=== PATIENT | male | born 1985 | race Caucasian/White ===

== ENCOUNTER 2017-03-26 10:11 | Emergency (ER) | payer BC ==
[2017-03-26 11:01] LABS: #Monocytes 0.8 thou/uL (0.11-0.59); %Basophils 0.2 % (0.0-1.0); %Eosinophils 0.2 % (0.0-10.0); %Lymphocytes 9.6 % (21.0-51.0); %Monocytes 8.1 % (0.0-10.0); %Neutrophils 81.9 % (42.0-75.0); Hemoglobin 15.1 g/dL (14.0-18.0); Mean Corpuscular HGB CONC 34.2 g/dL (32.0-36.0); Mean Corpuscular Volume 87.5 fl (80.0-94.0); Mean Platelet Volume 7.5 fL (7.4-10.4); Platelet Count 215 thou/uL (130-400); RBC Distribution Width 11.7 % (11.5-14.5); Red Blood Cell (RBC) Count 5.05 mill/uL (4.70-6.10); White Blood Cell (WBC) Count 9.8 thou/uL (4.8-10.8)
[2017-03-26 11:27] LABS: ALT (SGPT) 49 U/L (8-55); AST (SGOT) 55 U/L (5-34); Acetaminophen Less than 6.0 mcg/mL (10.0-30.0); Alcohol Less than 10 mg/dL (Less than 10); Alkaline Phosphatase 98 U/L (40-150); Anion Gap 16 mmol/L (10-20); BUN (Urea Nitrogen) 18 mg/dL (8.9-20.6); Bilirubin, Total 0.5 mg/dL (0.2-1.2); CK (CPK) 2802 U/L (30-200); Calc. Creatinine Clearance 0 mL/min (70-130); Calcium 9.5 mg/dL (7.8-10.44); Carbon Dioxide 24 mmol/L (22-29); Chloride 102 mmol/L (98-107); Estimated GFR-MDRD 58; Globulin 3.4 g/dL (2.4-3.5); Glucose 87 mg/dL (70-105); Potassium 4.1 mmol/L (3.5-5.1); Protein, Total 7.4 g/dL (6.0-8.3); Salicylate Less than 8.0 mg/dL (15.0-30.0); Sodium 138 mmol/L (136-145)
[2017-03-26 11:30] LABS: Troponin I Less than 0.010 ng/mL (< 0.028)
== END 2017-03-26 11:40 | disposition home or self-care (01) ==
LOC: ERS 10:11
DX: L03.115 Cellulitis of right lower limb (principal); R22.42 Localized swelling, mass and lump, left lower limb; Z79.899 Other long term (current) drug therapy
CPT/HCPCS: 36415; 80053; 80307; 82553; 83690; 84484; 85025; 93005; 94760

== ENCOUNTER 2017-05-30 11:06 | Emergency (ER) | payer BC, OTHER, SELFPAY ==
[2017-05-30 11:43] LABS: #Monocytes 0.4 thou/uL (0.11-0.59); #Neutrophils 5.7 thou/uL (1.40-6.50); %Basophils 0.2 % (0.0-1.0); %Eosinophils 0.2 % (0.0-10.0); %Lymphocytes 14.3 % (21.0-51.0); %Monocytes 5.1 % (0.0-10.0); %Neutrophils 80.2 % (42.0-75.0); Hemoglobin 14.2 g/dL (14.0-18.0); Mean Corpuscular Hemoglobin 28.1 pg (27.0-31.0); Mean Corpuscular Volume 85.2 fl (80.0-94.0); Mean Platelet Volume 7.1 fL (7.4-10.4); Platelet Count 257 thou/uL (130-400); RBC Distribution Width 12.6 % (11.5-14.5); Red Blood Cell (RBC) Count 5.06 mill/uL (4.70-6.10); White Blood Cell (WBC) Count 7.2 thou/uL (4.8-10.8)
[2017-05-30 12:14] LABS: ALT (SGPT) 24 U/L (8-55); AST (SGOT) 35 U/L (5-34); Albumin 4.1 g/dL (3.5-5.0); Alkaline Phosphatase 76 U/L (40-150); Anion Gap 17 mmol/L (10-20); BUN (Urea Nitrogen) 6 mg/dL (8.9-20.6); Bilirubin, Total 0.5 mg/dL (0.2-1.2); Calc. Creatinine Clearance 0 mL/min (70-130); Calcium 9.5 mg/dL (7.8-10.44); Carbon Dioxide 19 mmol/L (22-29); Chloride 105 mmol/L (98-107); Estimated GFR-MDRD Greater than 90; Globulin 3.4 g/dL (2.4-3.5); Glucose 120 mg/dL (70-105); Potassium 3.7 mmol/L (3.5-5.1); Protein, Total 7.5 g/dL (6.0-8.3); Sodium 137 mmol/L (136-145)
[2017-05-30 12:17] LABS: Acetaminophen Less than 6.0 mcg/mL (10.0-30.0); Alcohol Less than 10 mg/dL (Less than 10); Salicylate Less than 8.0 mg/dL (15.0-30.0)
[2017-05-30] MEDS ORDERED: Ziprasidone 20 MG VIAL ONE (12:26)
[2017-05-30 13:42] LABS: Amphetamine Detected (NotDetected); Cocaine Metabolite Screen Detected (NotDetected); Medtox Reader # READER 4; Methamphetamine Detected (NotDetected); Opiate Screen Detected (NotDetected)
[2017-05-30 13:43] LABS: Barbiturates Screen Not Detected (NotDetected); Benzodiazepine Screen Not Detected (NotDetected); Medtox Control Line Valid? VALID (VALID); Methadone Not Detected (NotDetected); Oxycodone Screen Not Detected (NotDetected); Phencyclidine (PCP) Not Detected (NotDetected); THC/Cannabinoid Screen Not Detected (NotDetected); Tricyclic Screen Not Detected (NotDetected)
[2017-05-30 13:45] LABS: Bilirubin Negative (Negative); Blood, Urine Negative (Negative); Clarity CLEAR (Clear); Glucose, Urine (Dipstick) Negative (Negative); Leukocyte Negative (Negative); Nitrite Negative (Negative); Protein, Urine (Dipstick) Negative (Neg-Trace); Specific Gravity, Urine 1.003 (1.002-1.036); pH, Urine 7.5 (5.0-9.0)
[2017-05-31] MEDS ORDERED: Ziprasidone 20 MG VIAL ONE ×2 (03:12→07:55)
[2017-05-31] MEDS ORDERED: Water For Injection,Sterile 20 ML ONE ×2 (03:13→07:56)
== END 2017-05-31 09:21 ==
LOC: ERS 11:06
DX: R45.851 Suicidal ideations (principal); R44.0 Auditory hallucinations; R44.1 Visual hallucinations; S00.12XA Contusion of left eyelid and periocular area, initial encounter; Z79.899 Other long term (current) drug therapy; W22.8XXA Striking against or struck by other objects, initial encounter
CPT/HCPCS: 36415; 80053; 80306; 80307; 81003; 84443; 85025; 93005; 96372; J3486

== ENCOUNTER 2017-06-19 07:13 | Emergency (ER) | payer OTHER ==
[2017-06-19 08:03] LABS: #Lymphocytes 1.1 thou/uL (1.20-3.40); #Monocytes 0.5 thou/uL (0.11-0.59); #Neutrophils 7.7 thou/uL (1.40-6.50); %Basophils 0.4 % (0.0-1.0); %Eosinophils 0.3 % (0.0-10.0); %Lymphocytes 11.4 % (21.0-51.0); %Monocytes 5.3 % (0.0-10.0); %Neutrophils 82.6 % (42.0-75.0); Hemoglobin 14.9 g/dL (14.0-18.0); Mean Corpuscular Hemoglobin 29.2 pg (27.0-31.0); Mean Platelet Volume 6.9 fL (7.4-10.4); Platelet Count 251 thou/uL (130-400); RBC Distribution Width 13.3 % (11.5-14.5); White Blood Cell (WBC) Count 9.3 thou/uL (4.8-10.8)
[2017-06-19 08:24] LABS: Acetaminophen Less than 6.0 mcg/mL (10.0-30.0); Alcohol Less than 10 mg/dL (Less than 10); Salicylate Less than 8.0 mg/dL (15.0-30.0)
[2017-06-19 08:25] LABS: ALT (SGPT) 64 U/L (8-55); AST (SGOT) 49 U/L (5-34); Albumin 4.6 g/dL (3.5-5.0); Alkaline Phosphatase 74 U/L (40-150); Anion Gap 15 mmol/L (10-20); BUN (Urea Nitrogen) 16 mg/dL (8.9-20.6); Bilirubin, Total 0.6 mg/dL (0.2-1.2); CK (CPK) 249 U/L (30-200); Calc. Creatinine Clearance 0 mL/min (70-130); Calcium 9.5 mg/dL (7.8-10.44); Carbon Dioxide 27 mmol/L (22-29); Chloride 99 mmol/L (98-107); Estimated GFR-MDRD 79; Globulin 3.3 g/dL (2.4-3.5); Glucose 87 mg/dL (70-105); Potassium 3.9 mmol/L (3.5-5.1); Protein, Total 7.9 g/dL (6.0-8.3); Sodium 137 mmol/L (136-145)
[2017-06-19 08:32] LABS: Bilirubin Negative (Negative); Blood, Urine Negative (Negative); Clarity CLEAR (Clear); Glucose, Urine (Dipstick) Negative (Negative); Leukocyte Negative (Negative); Nitrite Negative (Negative); Protein, Urine (Dipstick) Negative (Neg-Trace); Specific Gravity, Urine 1.009 (1.002-1.036); Urobilinogen 0.2 mg/dL (0.2-1.0)
[2017-06-19 08:43] LABS: Amphetamine Detected (NotDetected); Barbiturates Screen Not Detected (NotDetected); Benzodiazepine Screen Not Detected (NotDetected); Cocaine Metabolite Screen Detected (NotDetected); Medtox Control Line Valid? VALID (VALID); Medtox Reader # READER 1; Methadone Not Detected (NotDetected); Methamphetamine Detected (NotDetected); Opiate Screen Not Detected (NotDetected); Oxycodone Screen Not Detected (NotDetected); Phencyclidine (PCP) Not Detected (NotDetected); THC/Cannabinoid Screen Not Detected (NotDetected); Tricyclic Screen Not Detected (NotDetected)
== END 2017-06-19 09:40 | disposition left against medical advice (07) ==
LOC: ERS 07:13
DX: R44.0 Auditory hallucinations (principal); R44.1 Visual hallucinations
CPT/HCPCS: 36415; 80053; 80306; 80307; 81003; 82550; 84443; 85025; 96360

== ENCOUNTER 2019-04-09 16:03 | Inpatient (IN) | payer BC, OTHER ==
[~2019-04-09 16:03] MED LIST: Iopamidol-370 76% 500 ML 1 ML ONE
--- NOTE | 2019-04-09 16:26 | RAD ---
ONE VIEW CHEST: 04/09/19 COMPARISON: 04/16/15 HISTORY: Overdose. Status post intubation. FINDINGS: There appears to be an endotracheal tube that terminates just beyond the level of the clavicles. Naso gastric tube appears to coil upon itself and terminate in the mid thoracic esophagus. Repositioning a nd repeat radiograph is recommended. Patch interstitial and alveolar opacities are noted. IMPRESSION: Endotracheal and nasogastric tubes as above. Findings conveyed to Dr. Rosen, 04/09/19 at 4:22 p.m. Code CR POS: CET
[2019-04-09] MEDS ORDERED: Albuterol Sulfate 2.5 mg/3 ml Neb ONE (16:30)
[2019-04-09] MEDS ORDERED: Midazolam HCl 5 mg/ml Vial ONE (16:32)
[2019-04-09 16:35] LABS: Hemoglobin 13.9 g/dL (14.0-18.0); Mean Corpuscular HGB CONC 33.5 g/dL (32.0-36.0); Mean Corpuscular Hemoglobin 30.5 pg (27.0-31.0); Mean Corpuscular Volume 90.8 fL (78.0-98.0); Mean Platelet Volume 7.6 fL (7.4-10.4); Platelet Count 216 thou/uL (130-400); RBC Distribution Width 12.6 % (11.5-14.5); Red Blood Cell (RBC) Count 4.56 mill/uL (4.70-6.10); White Blood Cell (WBC) Count 14.8 thou/uL (4.8-10.8)
[2019-04-09 16:42] LABS: Acetaminophen Less than 6.0 mcg/mL (10.0-30.0); Alcohol Less than 10 mg/dL (Less than 10); CK (CPK) 1141 U/L (30-200); Salicylate Less than 8.0 mg/dL (15.0-30.0)
[2019-04-09 16:50] LABS: Band 12 % (5-11); Eosinophils 1 % (0-10); Lymphocytes 8 % (21-51); MDiff Complete? YES; Monocytes 4 % (0-10); Neutrophil 74 % (42-75); Platelet Morphology Comment Appears Adequate; RBC Morphology Normal
[2019-04-09 16:51] LABS: ALT (SGPT) 38 U/L (8-55); AST (SGOT) 61 U/L (5-34); Albumin 4.1 g/dL (3.5-5.0); Alkaline Phosphatase 57 U/L (40-110); Anion Gap 21 mmol/L (10-20); BUN (Urea Nitrogen) 15 mg/dL (8.9-20.6); Bilirubin, Total 0.3 mg/dL (0.2-1.2); Calc. Creatinine Clearance 0 mL/min (70-130); Carbon Dioxide 17 mmol/L (22-29); Chloride 107 mmol/L (98-107); Estimated GFR-MDRD 36; Globulin 2.4 g/dL (2.4-3.5); Glucose 128 mg/dL (70-105); Potassium 3.8 mmol/L (3.5-5.1); Protein, Total 6.5 g/dL (6.0-8.3); Sodium 141 mmol/L (136-145)
[2019-04-09] MEDS ORDERED: Azithromycin 500 MG VIAL ONE (16:52)
[2019-04-09] MEDS ORDERED: Cefepime 1 GM VIAL ONE (16:53)
[2019-04-09] MEDS ORDERED: Ventilator Sedation Protocol 1 EACH FS ONE (16:56)
[2019-04-09] MEDS ORDERED: CCU Electrolyte Replacement 1 EACH FS ONE (16:56)
[2019-04-09 16:57] LABS: Actual Bicarbonate (HCO3a) 21.8 mEq/L (22-28); Analyzer IN Cardio ER; Base Excess (BEa) -11.8 mEq/L (-2.0 to +3.0); CO2 Tension 95.3 mmHg (35.0-45.0); Calcium, Ionized 1.17 mmol/L (1.12-1.30); Carboxyhemoglobin (COHb) 0.4 gm% (0.0-3.0); O2 Tension (PaO2) 63.9 mmHg (80.0-100.0); Potassium - ABG Lab 3.48 mmol/L (3.70-5.30); pH, Arterial 6.98 (7.35-7.45)
[2019-04-09 16:58] LABS: ALV-art Gradient 529.975 (0-20); Puncture Site RRA
[2019-04-09] MEDS ORDERED: Vecuronium 10 MG VIAL IVP PRN (16:58)
[2019-04-09 17:09] LABS: Bilirubin Negative (Negative); Blood, Urine 2+ (Negative); Clarity Turbid (Clear); Glucose, Urine (Dipstick) Normal (Negative); Leukocyte Negative Leu/uL (Negative); Nitrite Negative (Negative); Protein, Urine (Dipstick) 100 mg/dL (Neg-Trace); RBC/HPF 0-3 HPF (0-3); WBC/HPF 0-3 HPF (0-3)
[2019-04-09 17:11] LABS: Bacteria/HPF 1+ HPF (None Seen)
[2019-04-09 17:14] LABS: Cocaine Metabolite Screen Detected (NotDetected); Medtox Reader # READER 1; Methamphetamine Not Detected (NotDetected); Phencyclidine (PCP) Not Detected (NotDetected); THC/Cannabinoid Screen Not Detected (NotDetected)
[2019-04-09 17:15] LABS: Amphetamine Not Detected (NotDetected); Barbiturates Screen Not Detected (NotDetected); Benzodiazepine Screen Detected (NotDetected); Medtox Control Line Valid? VALID (VALID); Methadone Not Detected (NotDetected); Opiate Screen Detected (NotDetected); Oxycodone Screen Not Detected (NotDetected); Tricyclic Screen Detected (NotDetected)
[2019-04-09 17:18] LABS: CKMB 9.4 ng/mL (0-6.6)
--- NOTE | 2019-04-09 17:18 | RAD ---
Portable frontal chest radiograph: 04/09/2019 COMPARISON: 04/09/2019 HISTORY: Evaluate chest following procedure, central line placement FINDINGS: There is a new right-sided vascular catheter, distal tip overlying the region of the cavoat rial junction. Supine imaging is provided, limiting assessment for pneumothorax and pleural fluid. Midline sternotomy wires and endotracheal tube in stable position. There is a vertical radiodensity t o the left of the endotracheal tube which could represent the tip of a malpositioned nasogastric tube. Clinical correlation is required. There is perihilar interstitial opacity with mild pulmonary vascular congestion. There is also perihi lar and bibasilar patchy airspace disease. IMPRESSION: Lines and tubes as detailed above. Please see above discussion. Interstitial and alveolar opacity in the perihilar regions and both lung bases may signify edema or infectious pneumonitis.
[2019-04-09] MEDS ORDERED: fentaNYL Citrate/PF 2,000 MCG in Sodium Chloride 0.9% 60 ML IV SCH ×2 (17:22→17:30)
[2019-04-09] MEDS ORDERED: cefTRIAXone\\ROCEPHIN 1 GM VIAL ONE (17:25)
[2019-04-09] MEDS ORDERED: Fentanyl 100 MCG/2 ML VIAL ONE (17:26)
[2019-04-09] MEDS ORDERED: PHOS-NAK 1 PKT PACK PO PRN ×2 (17:29)
[2019-04-09] MEDS ORDERED: Potassium Phosphate 12 MMOL in Sodium Chloride 0.9% 250 ML 250 ML IV PRN (17:29)
[2019-04-09] MEDS ORDERED: CCU ELECTROLYTE REPLACEMENT PROTOCOL FS PRN (17:29)
[2019-04-09] MEDS ORDERED: Potassium Phosphate 15 MMOL in Sodium Chloride 0.9% 250 ML 250 ML IV PRN (17:29)
[2019-04-09] MEDS ORDERED: Magnesium 2 GM/50 ML 2 GM in Premix Bag 1 BAG IVPB PRN (17:29)
[2019-04-09] MEDS ORDERED: Potassium Phosphate 9 MMOL in Sodium Chloride 0.9% 100 ML IVPB PRN (17:29)
[2019-04-09] MEDS ORDERED: Magnesium Oxide 400 MG TAB PO PRN ×2 (17:29)
[2019-04-09] MEDS ORDERED: Potassium Chloride 40 MEQ in Premix Bag 1 BAG IVPB PRN (17:29)
[2019-04-09] MEDS ORDERED: Potassium Chloride 20 MEQ TAB PO PRN (17:29)
[2019-04-09] MEDS ORDERED: Potassium Chloride 40 MEQ in Sodium Chloride 0.9% 250 ML 250 ML IVPB PRN (17:29)
[2019-04-09] MEDS ORDERED: Fentanyl BOLUS 250 ML IVPB PRN (17:30)
[2019-04-09] MEDS ORDERED: DISCONTINUE PREVIOUS NARCOTIC PAIN MEDICATIONS AND BENZODIAZEPINES FS SCH (17:30)
[2019-04-09] MEDS ORDERED: Morphine 2 MG/ML SYRINGE SLOW IVP PRN (17:30)
[2019-04-09] MEDS ORDERED: Propofol BOLUS 1,000 MG/100 ML VIAL IV PRN (17:30)
--- NOTE | 2019-04-09 18:16 | CT ---
CT angiogram chest: 04/09/2019 COMPARISON: None HISTORY: Overdose TECHNIQUE: Axial CT imaging at 2.5 mm intervals through the chest with IV contrast using CT angiogram protocol. Coronal and sagittal 3-D reformatted imaging obtained. FINDINGS: There is a nasogastric tube present, terminating within the superior/proximal esophagus. En dotracheal tube and right-sided vascular catheter in place. There is gas within the right ventricle, the main pulmonary arterial trunk, and within the venous structures superior to the manubr ium suggesting gas introduced during venous access. There is no discrete endobronchial lesion appreciated. No lymphadenopathy is noted within the chest. Limited assessment of the upper abdomen appears grossly unremarkable. There is no pulmonary arterial filling defect seen to suggest the presence of acute pulmonary arteria l embolism. Extensive multifocal reticulonodular density noted centrally within the left upper lobe. There are fo shabana areas of scattered peripheral consolidation within the lingula. There is extensive airspace disease with multifocal consolidation and associated volume loss involving the majority of the left l ower lobe. Extensive reticulonodular opacity seen throughout the right lung with multifocal consolidation includ ing the posterior medial right upper lobe, the inferior anterior medial aspect of the right middle lobe, and the posterior medial aspect of the right lower lobe. Review of the osseous structures demonstrates no worrisome lytic or blastic bone lesion. IMPRESSION: No evidence for acute pulmonary arterial embolism. Lines and tubes as above, including a nasogastric tube which should be advanced. Extensive reticulonodular densities throughout both lungs with multifocal consolidation involving all lobes consistent with multi lobar pneumonia or aspiration. Significant venous gas, including within the main pulmonary arterial trunk and the right ventricle.
--- NOTE | 2019-04-09 18:22 | CON ---
DATE OF CONSULTATION: 04/09/2019 35 minutes of critical time. REASON FOR CONSULTATION: Heroin overdose, patient intubated and mechanically ventilated. HISTORY OF PRESENT ILLNESS: This is a 33-year-old male, who was apparently found down at home by his . He was seen up and around earlier today. The presumption is that he overdosed on heroin. He was intubated in the field by EMS and brought here, found to have a severe respiratory acidosis. PAST MEDICAL HISTORY: 1. Heroin abuse. 2. Cocaine abuse. 3. Ventricular septal defect. 4. Chronic pain. PAST SURGICAL HISTORY: Median sternotomy for what sounds to be a VSD repair. SOCIAL HISTORY: Polysubstance abuser, apparently recently relapsed after being on Suboxone. REVIEW OF SYSTEMS: Cannot be obtained as the patient is mechanically ventilated. PHYSICAL EXAMINATION: VITAL SIGNS: Temperature 91.8, pulse 111, blood pressure 108/65, and O2 sat 96%. Currently, on SIMV rate , tidal volume 450, PEEP 5, pressure support 10, FiO2 100%. HEENT: Pupils are 2 mm sluggishly reactive. Sclerae are anicteric. Oropharynx, ET tube in place. NECK: No adenopathy, JVD or bruits. LUNGS: Clear anteriorly. CARDIOVASCULAR: S1 and S2, regular. ABDOMEN: Soft, obese, and nontender. EXTREMITIES: No clubbing, cyanosis or edema. He has skin track gonzales over his arms bilaterally. LABORATORY DATA: White blood cell count 14.8, hematocrit 41.4, and platelet count 216 with 74% neutrophils and 12% bands. Sodium 141, potassium 3.8, chloride 107, CO2 of 17, BUN 15, creatinine 2.1, and glucose 128. CPK 1141. Troponin 0.048. Lactate 3.2. Tox screen is incomplete, but does not show alcohol, acetaminophen or salicylates. His initial ABG showed a pH of 6.8 and pCO2 in the 90s. DIAGNOSTIC DATA: His chest x-ray shows no acute findings. ASSESSMENT: 1. Presumed narcotic overdose. 2. Acute respiratory failure secondary to hypoventilation. 3. Polysubstance abuse. 4. Possible sepsis. PLAN: 1. The patient will be kept mechanically ventilated. 2. Rewarm the patient slowly. 3. Empiric antibiotics. 4. IV fluids. 5. We will follow. Job ID: [id number]
[2019-04-09] MEDS: Lorazepam 2 MG/ML VIAL SLOW IVP PRN (18:27)
[2019-04-09] MEDS: Sodium Chloride 0.9% 1,000 ML IV SCH (18:29)
[2019-04-09 18:54] LABS: Base Excess (BEa) -8.6 mEq/L (-2.0 to +3.0); Calcium, Ionized 1.12 mmol/L (1.12-1.30); Carboxyhemoglobin (COHb) 0.7 gm% (0.0-3.0); Hemoglobin (Hb) 13.3 g/dL (14.0-18.0); O2 Tension (PaO2) 90.2 mmHg (80.0-100.0); Potassium - ABG Lab 3.99 mmol/L (3.70-5.30)
[2019-04-09] MEDS ORDERED: Norepinephrine 8 MG/0.9% NS 250 ML IVPB SCH (18:58)
[2019-04-09 18:59] LABS: ALV-art Gradient 533.925 (0-20); CO2 Tension 71.1 mmHg (35.0-45.0); Puncture Site RBR; pH, Arterial 7.11 (7.35-7.45)
[2019-04-09] MEDS ORDERED: Piperacillin/Tazobactam 3.375 GM in Sodium Chloride 0.9% 100 ML IVPB SCH (19:00)
[2019-04-09 19:10] LABS: Lactic Acid 1.2 mmol/L (0.5-2.2)
--- NOTE | 2019-04-09 19:18 | PDOC.HHP ---
Hospitalist HPI - History of Present Illness respiratory failure History of Present Illness: Most of the H/P was obtain from the EMR, during my evaluation patient is on mechanical ventilation and sedated. no family members were present during my evaluation Case of an 33y/o male with pmhx of vsd s/p repair, heroin abuse and cocaine abuse who was brought to hospital after been found unconscious by . Apparently patient was on his usual state of health until this morning which was the last time he was seen at his usual self. ems was called and patient was intubated at site and brought to hospital. patient here found w septic shock with hypotension unresponsive to ivfs with resp failure per, w elevated wbc and chest xray/ cta suggestive of aspiration for which sepsis protocol were starterd. Hospitalist ROS - Review of Systems ROS unobtainable: due to endotracheal tube - Medication Medications: Active Medications Generic Name Dose Route Start Last Admin Trade Name Freq PRN Reason Stop Dose Admin Albuterol/Ipratropium 3 ml 04/09/19 18:30 04/09/19 19:01 Duoneb NEB 3 ml [id number] NOAH Administration Sodium Chloride 1,000 mls @ 150 mls/hr 04/09/19 17:00 04/09/19 18:29 Normal Saline 0.9% IV 1,000 mls .Q6H40M NOAH Administration Lorazepam 2 mg 04/09/19 17:30 04/09/19 18:27 Ativan SLOW IVP 05/09/19 17:30 2 mg Q1H PRN Administration Breakthrough agitation Hospitalist History - Past Medical History Cardiac: reports: Other (vsd s/p repair) - Social History Drugs: reports: cocaine, heroine - Exam General Appearance: ill appearing Eye: PERRL, anicteric sclera ENT: normocephalic atraumatic, no oropharyngeal lesions Neck: supple, symmetric, no JVD Heart: no murmur, no gallops, no rubs Heart - other findings: tachycardic Respiratory: normal chest expansion, rales, rhonchi Gastrointestinal: soft, non-tender, non-distended, normal bowel sounds, no palpable masses Extremities: no cyanosis, no clubbing, no edema Skin: normal turgor, no lesions, no rashes Neurological - other findings: sedated Musculoskeletal: normal tone, no muscle wasting Psychiatric - other findings: sedated Hospitalist Results - Labs Result Diagrams: 04/09/19 16:15 04/09/19 16:15 Lab results: WBC 14.8 thou/uL (4.8-10.8) H 04/09/19 16:15 Hgb 13.9 g/dL (14.0-18.0) L 04/09/19 16:15 Hct 41.4 % (42.0-52.0) L 04/09/19 16:15 MCV 90.8 fL (78.0-98.0) 04/09/19 16:15 Plt Count 216 thou/uL (130-400) 04/09/19 16:15 Band Neuts % (Manual) 12 % (5-11) H 04/09/19 16:15 ABG pH 7.11 (7.35-7.45) L* 04/09/19 18:20 ABG pCO2 71.1 mmHg (35.0-45.0) H* 04/09/19 18:20 ABG pO2 90.2 mmHg (80.0-100.0) 04/09/19 18:20 Sodium 141 mmol/L (136-145) 04/09/19 16:15 Potassium 3.8 mmol/L (3.5-5.1) 04/09/19 16:15 Chloride 107 mmol/L (98-107) 04/09/19 16:15 Carbon Dioxide 17 mmol/L (22-29) L 04/09/19 16:15 BUN 15 mg/dL (8.9-20.6) 04/09/19 16:15 Creatinine 2.12 mg/dL (0.7-1.3) H 04/09/19 16:15 Glucose 128 mg/dL (70-105) H 04/09/19 16:15 Lactic Acid 3.2 mmol/L (0.5-2.2) H 04/09/19 16:15 Calcium 8.0 mg/dL (7.8-10.44) 04/09/19 16:15 Total Bilirubin 0.3 mg/dL (0.2-1.2) 04/09/19 16:15 AST 61 U/L (5-34) H 04/09/19 16:15 ALT 38 U/L (8-55) 04/09/19 16:15 Alkaline Phosphatase 57 U/L (40-110) 04/09/19 16:15 Creatine Kinase 1141 U/L (30-200) H 04/09/19 16:15 CK-MB (CK-2) 9.4 ng/mL (0-6.6) H* 04/09/19 16:15 Troponin I 0.048 ng/mL (< 0.028) H 04/09/19 16:15 Serum Total Protein 6.5 g/dL (6.0-8.3) 04/09/19 16:15 Albumin 4.1 g/dL (3.5-5.0) 04/09/19 16:15 Urine Ketones Negative mg/dL (Negative) 04/09/19 16:42 Urine Blood 2+ (Negative) A 04/09/19 16:42 Urine Nitrite Negative (Negative) 04/09/19 16:42 Ur Leukocyte Esterase Negative Nieves/uL (Negative) 04/09/19 16:42 Urine RBC 0-3 HPF (0-3) 04/09/19 16:42 Urine WBC 0-3 HPF (0-3) 04/09/19 16:42 Ur Squamous Epith Cells 7-10 HPF (0-3) A 04/09/19 16:42 Urine Bacteria 1+ HPF (None Seen) A 04/09/19 16:42 Hospitalist H&P A/P - Problem (1) Respiratory failure Code(s): J96.90 - RESPIRATORY FAILURE, UNSP, UNSP W HYPOXIA OR HYPERCAPNIA Status: Acute (2) PER (acute kidney injury) Code(s): N17.9 - ACUTE KIDNEY FAILURE, UNSPECIFIED Status: Acute (3) Aspiration pneumonia Code(s): J69.0 - PNEUMONITIS DUE TO INHALATION OF FOOD AND VOMIT Status: Acute (4) Overdose Code(s): T50.901A - POISONING BY UNSP DRUG/MEDS/BIOL SUBST, ACCIDENTAL, INIT Status: Acute (5) Polysubstance abuse Code(s): F19.10 - OTHER PSYCHOACTIVE SUBSTANCE ABUSE, UNCOMPLICATED Status: Chronic - Plan Plan: -pulm/crit consulted - continue w mechanical ventilation - on zosyn / vanc for possible sepsis secondary to aspiration - on ivfs for per - sedated for mv management and withdrawal symptoms - on levophed for hypotension refractory to ivfs -sepsis protocols - resp therapies -dvt / gi prophylaxis
[2019-04-09 19:28] LABS: Troponin I 0.094 ng/mL (< 0.028)
[2019-04-09] MEDS: Propofol 1,000 MG/100 ML VIAL IV PRN (21:00)
[2019-04-09 22:34] VITALS: BMI 32.5
[2019-04-09 22:51] LABS: Troponin I 0.126 ng/mL (< 0.028)
[2019-04-10] MEDS: Propofol 1,000 MG/100 ML VIAL IV PRN ×6 (02:07→20:57)
[2019-04-10] MEDS: Piperacillin/Tazobactam 3.375 GM in Sodium Chloride 0.9% 100 ML IVPB SCH ×4 (02:08→19:54)
[2019-04-10] MEDS: Sodium Chloride 0.9% 1,000 ML IV SCH ×4 (05:06→20:57)
[2019-04-10 05:39] LABS: Hemoglobin 12.9 g/dL (14.0-18.0); Mean Corpuscular HGB CONC 34.5 g/dL (32.0-36.0); Mean Corpuscular Hemoglobin 30.9 pg (27.0-31.0); Mean Corpuscular Volume 89.5 fL (78.0-98.0); Mean Platelet Volume 7.6 fL (7.4-10.4); Platelet Count 175 thou/uL (130-400); RBC Distribution Width 12.4 % (11.5-14.5); Red Blood Cell (RBC) Count 4.18 mill/uL (4.70-6.10); White Blood Cell (WBC) Count 4.9 thou/uL (4.8-10.8)
[2019-04-10 05:59] LABS: ALT (SGPT) 31 U/L (8-55); AST (SGOT) 49 U/L (5-34); Albumin 3.4 g/dL (3.5-5.0); Alkaline Phosphatase 36 U/L (40-110); Anion Gap 14 mmol/L (10-20); BUN (Urea Nitrogen) 12 mg/dL (8.9-20.6); Bilirubin, Total 0.5 mg/dL (0.2-1.2); Calc. Creatinine Clearance 134 mL/min (70-130); Calcium 7.6 mg/dL (7.8-10.44); Carbon Dioxide 22 mmol/L (22-29); Chloride 108 mmol/L (98-107); Estimated GFR-MDRD 66; Globulin 2.2 g/dL (2.4-3.5); Glucose 106 mg/dL (70-105); Phosphorus 3.4 mg/dL (2.3-4.7); Potassium 4.2 mmol/L (3.5-5.1); Protein, Total 5.6 g/dL (6.0-8.3); Sodium 140 mmol/L (136-145)
[2019-04-10 06:14] LABS: Band 41 % (5-11); Lymphocytes 7 % (21-51); MDiff Complete? YES; Metamyelocyte 5 % (0-0); Monocytes 3 % (0-10); Neutrophil 44 % (42-75)
[2019-04-10 06:43] LABS: Actual Bicarbonate (HCO3a) 21.9 mEq/L (22-28); Base Excess (BEa) -3.3 mEq/L (-2.0 to +3.0); CO2 Tension 40.1 mmHg (35.0-45.0); Calcium, Ionized 1.07 mmol/L (1.12-1.30); Carboxyhemoglobin (COHb) 1.2 gm% (0.0-3.0); Hemoglobin (Hb) 12.5 g/dL (14.0-18.0); Potassium - ABG Lab 4.17 mmol/L (3.70-5.30); pH, Arterial 7.36 (7.35-7.45)
[2019-04-10 06:49] LABS: ALV-art Gradient 178.175 (0-20); O2 Tension (PaO2) 56.9 mmHg (80.0-100.0); Puncture Site RBRACH
[2019-04-10] MEDS: Lorazepam 2 MG/ML VIAL SLOW IVP PRN ×4 (07:48→22:17)
[2019-04-10] MEDS: Pantoprazole 40 MG VIAL IVP SCH (08:09)
[2019-04-10] MEDS: Enoxaparin Sodium 30 MG/0.3 ML SYRINGE SC SCH (08:10)
--- NOTE | 2019-04-10 08:10 | RAD ---
CHEST 1 VIEW: INDICATION: History of pneumonia. COMPARISON: Prior exam dated 04/09/2019. FINDINGS: There are worsening bilateral airspace opacities most pronounced in the lower lobes and right upper l obe suspicious for evolving pneumonia. The patient is intubated with gastric catheter placement. No pneumothorax is evident. Right subclavian central venous catheter projects in the region of the SVC . Osseous structures are unchanged. IMPRESSION: Slightly more pronounced bibasilar airspace opacities and right upper lobe airspace opacities consist ent with worsening multifocal pneumonia. POS: BH
--- NOTE | 2019-04-10 08:15 | PRG ---
DATE OF SERVICE: 04/10/2019 TIME SPENT: This is 35 minutes of critical care time. SUBJECTIVE: The patient remains intubated on mechanical ventilation. He will wake up and follow commands, becomes quite agitated easily. OBJECTIVE: VITAL SIGNS: His temperature is 99.1, pulse 104, and blood pressure 103/59. Intake for 24 hours 5, output 1211. HEENT: Unremarkable. NECK: No adenopathy or JVD. LUNGS: Coarse rhonchi bilaterally. CARDIOVASCULAR: S1 and S2, regular. ABDOMEN: Soft and nontender. EXTREMITIES: No clubbing, cyanosis, or edema. LABORATORY DATA: White blood cell count 4.9, hemoglobin 12.9, hematocrit 37.4, and platelet count 175. ABG; pH of 7.36, pCO2 of 40, pO2 of 57, that is on SIMV rate 28, tidal volume 500, PEEP 5, pressure support 10, and FiO2 of 40%. Sodium 140, potassium 4.2, chloride 108, CO2 of 22, BUN 12, creatinine 1.3, glucose 106, lactate is down to 1.2, magnesium 1.5, and phosphorus 3.4. Tox screen positive for cocaine, benzodiazepines, and opiates. Chest x-ray shows diffuse bilateral infiltrates. ASSESSMENT: 1. Status post polysubstance overdose. 2. Aspiration pneumonia. 3. Low magnesium. 4. Sepsis. PLAN: I do not think he is a candidate for extubation at this time based on the appearance of his radiograph and the amount of secretions that he is producing. I am also worried about his potential for withdrawal symptoms. I have decided to try him on pressure support ventilation because he looks more comfortable in that mode. We will continue the IV antibiotics. Job ID: [id number]
[2019-04-10] MEDS ORDERED: FLU VACC QS2019-20(6MOS UP)/PF 60 MCG/0.5 ML SYRINGE IM ONE (09:00)
--- NOTE | 2019-04-10 19:06 | PDOC.HOSPP ---
- Subjective Encounter Date: 04/10/19 Encounter Time: 09:40 Subjective: Pt seen for followup re: acute hypoxic respiratory failure. Intubated, unable to complete ROS. - Objective Vital Signs & Weight: Vital Signs (12 hours) Temp Pulse Resp BP Pulse Ox 04/10/19 18:39 102 H 22 H 100 04/10/19 18:00 20 04/10/19 16:00 98.2 F 16 04/10/19 14:24 94 114/65 04/10/19 14:00 16 04/10/19 12:00 98.9 F 15 04/10/19 11:19 102 H 04/10/19 11:16 100 16 96 04/10/19 10:00 15 04/10/19 08:00 100.5 F H 15 100 Weight Admit Weight 253 lb Weight 253 lb 8.505 oz Most Recent Monitor Data Heart Rate from ECG 99 NIBP 104/64 NIBP BP-Mean 77 Respiration from ECG 21 SpO2 97 I&O: 04/09/19 04/10/19 04/11/19 06:59 06:59 06:59 Intake Total 2075 2250 Output Total 1211 1130 Balance 864 1120 Result Diagrams: 04/10/19 04:58 04/10/19 04:58 Additional Labs: labs and MARs reviewed by me Hospitalist ROS - Review of Systems ROS unobtainable: due to endotracheal tube - Medication Medications: Active Medications Generic Name Dose Route Start Last Admin Trade Name Freq PRN Reason Stop Dose Admin Albuterol/Ipratropium 3 ml 04/09/19 18:30 04/10/19 18:39 Duoneb NEB 3 ml [id number] NOAH Administration Enoxaparin Sodium 30 mg 04/10/19 09:00 04/10/19 08:10 Lovenox SC 30 mg 0900 NOAH Administration Piperacillin Sod/Tazobactam 100 mls @ 200 mls/hr 04/10/19 02:00 04/10/19 14: 52 Sod 3.375 gm/ Sodium Chloride IVPB 100 mls 0200,0900,1400,2000 NOAH Administration Sodium Chloride 1,000 mls @ 150 mls/hr 04/09/19 17:00 04/10/19 17:50 Normal Saline 0.9% IV Not Given .Q6H40M NOAH Magnesium Sulfate 1 gm/ Sodium 102 mls @ 102 mls/hr 04/09/19 17:29 04/10/19 16:01 Chloride IV 102 mls PRN PRN Administration MAG LEVEL 1.4 - 2.0 Fentanyl Citrate 2,000 mcg/ 100 mls @ 0 mls/hr 04/09/19 17:30 04/10/19 18:18 Sodium Chloride IV 05/09/19 17:30 100 mls INF NOAH Administration Protocol Per Protocol Norepinephrine Bitartrate 250 mls @ 0 mls/hr 04/09/19 18:58 04/09/19 19:17 Levophed IVPB 250 mls INF NOAH Administration Protocol Titrate Lorazepam 2 mg 04/09/19 17:30 04/10/19 15:09 Ativan SLOW IVP 05/09/19 17:30 2 mg Q1H PRN Administration Breakthrough agitation Pantoprazole Sodium 40 mg 04/10/19 09:00 04/10/19 08:09 Protonix IVP 40 mg DAILY NOAH Administration Propofol 1,000 mg 04/09/19 17:30 04/10/19 17:51 Diprivan IV 05/09/19 17:30 1,000 mg INF PRN Administration TO ACHIEVE GOAL RASS Protocol - Exam General - other findings: intubated Eye: anicteric sclera ENT: moist mucosa ENT - other findings: ETT Heart: RRR Respiratory: CTAB, no rales Gastrointestinal: soft, non-tender Extremities: no cyanosis Skin: no lesions Psychiatric - other findings: Unable to determine Hosp A/P - Plan - Problem (1) Acute Respiratory failure ACUTE RESPIRATORY FAILURE,W HYPOXIA AND HYPERCAPNIA Status: Acute (2) Aspiration pneumonia Code(s): J69.0 - PNEUMONITIS DUE TO INHALATION OF FOOD AND VOMIT Status: Acute (3) Overdose Code(s): T50.901A - POISONING BY UNSP DRUG/MEDS/BIOL SUBST, ACCIDENTAL, INIT Status: Acute (4) Polysubstance abuse Code(s): F19.10 - OTHER PSYCHOACTIVE SUBSTANCE ABUSE, UNCOMPLICATED Status: Chronic (5) PER (acute kidney injury) Code(s): N17.9 - ACUTE KIDNEY FAILURE, UNSPECIFIED Status: Resolved - Plan Plan: - continue w mechanical ventilation -Continue zosyn / vanc for possible sepsis secondary to aspiration pneumonia - Continue sedation PRN - Continue PRN levophed
[2019-04-10] MEDS ORDERED: Vancomycin HCl 1 GM in Premix Bag 1 BAG IVPB SCH (20:00)
[2019-04-11] MEDS: Propofol 1,000 MG/100 ML VIAL IV PRN ×3 (00:08→06:04)
[2019-04-11] MEDS: Piperacillin/Tazobactam 3.375 GM in Sodium Chloride 0.9% 100 ML IVPB SCH ×4 (02:19→20:25)
[2019-04-11] MEDS: Lorazepam 2 MG/ML VIAL SLOW IVP PRN (03:23)
[2019-04-11 04:24] LABS: #Lymphocytes 0.9 thou/uL (1.20-3.40); #Monocytes 0.4 thou/uL (0.11-0.59); #Neutrophils 5.5 thou/uL (1.40-6.50); %Basophils 0.2 % (0.0-1.0); %Eosinophils 0.3 % (0.0-10.0); %Lymphocytes 13.2 % (21.0-51.0); %Monocytes 5.5 % (0.0-10.0); %Neutrophils 80.9 % (42.0-75.0); Mean Corpuscular HGB CONC 34.7 g/dL (32.0-36.0); Mean Corpuscular Hemoglobin 30.9 pg (27.0-31.0); Mean Corpuscular Volume 89.1 fL (78.0-98.0); Mean Platelet Volume 8.4 fL (7.4-10.4); Platelet Count 124 thou/uL (130-400); RBC Distribution Width 12.5 % (11.5-14.5); White Blood Cell (WBC) Count 6.8 thou/uL (4.8-10.8)
[2019-04-11 04:48] LABS: Phosphorus 1.6 mg/dL (2.3-4.7)
[2019-04-11] MEDS: Sodium Chloride 0.9% 1,000 ML IV SCH (06:02)
[2019-04-11] MEDS: Enoxaparin Sodium 30 MG/0.3 ML SYRINGE SC SCH (07:27)
[2019-04-11] MEDS: Pantoprazole 40 MG VIAL IVP SCH (07:30)
--- NOTE | 2019-04-11 10:16 | RAD ---
PORTABLE CHEST: Date: 04/11/2019 HISTORY: CCU follow-up. On ventilator. COMPARISON: 04/10/2019. FINDINGS/IMPRESSION: ET tube, NG tube, and central line unchanged. Bilateral infiltrates again seen in mid and lower lungs with evidence of bilateral effusions. Bibasilar infiltrates appear slightly worse on the current darlene dy, although some of this may be due to differences in exposure. POS: ERNA
[2019-04-11] MEDS ORDERED: Sodium Chloride 0.9% 1,000 ML IV SCH (10:31)
[2019-04-11] MEDS ORDERED: Ziprasidone 20 MG VIAL ONE ×2 (10:48→18:33)
--- NOTE | 2019-04-11 10:53 | PRG ---
DATE OF SERVICE: 04/11/2019 SERVICE: Pulmonary Medicine. INTERVAL HISTORY: The patient is doing well on mechanical ventilation. That being said, whenever sedation is withheld, he becomes very wild very quick. The most of the wildness does not come from any instability. It is primarily coming from the irritation from the tube in his throat. He wakes up coughing and gagging, reaching for the tube, and he is not really directable. Otherwise, there has been no interval change to his condition. PHYSICAL EXAMINATION: VITAL SIGNS: Afebrile currently with a T-max overnight of 100.5. Pulse 94, blood pressure 142/110, respirations 29, and saturation 99% currently on 40% FiO2 and a PEEP of 5. GENERAL: The patient is intubated and sedated. HEENT: Normocephalic and atraumatic. Sclerae white. Conjunctivae pink. Oral mucosa is moist without lesions. LUNGS: Good air entry bilaterally, though there are extensive rhonchi. I do not hear any crackles or wheezing present. HEART: Normal rate. Regular. ABDOMEN: Soft, nontender, and nondistended. Bowel sounds are positive. MUSCULOSKELETAL: No cyanosis or clubbing. There is no pitting in the bilateral lower extremities. NEUROLOGIC: Grossly nonfocal. LABORATORY DATA: WBC 6.8, hemoglobin 12.0, platelets 124,000 and gently downtrending. A pH 7.36, pCO2 of 40, pO2 of 56 corresponding to a saturation 92%. Basic metabolic profile is unremarkable with a creatinine that is downtrending to 1.26. Calcium 7.6, magnesium 2.0. Phosphorus 1.6. Liver function studies are otherwise unremarkable. Troponin is gently up trending to 0.126. Urinalysis is unremarkable. Urine drug screen is positive for cocaine, benzodiazepines, tricyclics, and opiates. Blood cultures x2 are unremarkable. IMAGING: Chest x-ray demonstrates endotracheal tube in good position. There is an enteric catheter coursing midline below the level of the diaphragm. Cardiac silhouette is generous on this AP film. There is a right lower lobe infiltrate. I am less suspicious of an effusion. Right subclavian central venous catheter terminates in good position. ASSESSMENT: 1. Acute hypoxic respiratory failure. 2. Polysubstance drug overdose. 3. Metabolic encephalopathy, improving. 4. Community-acquired pneumonia secondary to overt aspiration. 5. Severe sepsis. DISCUSSION AND PLAN: His oxygen requirements have improved a little bit. He demonstrates a very good cough. Secretions seem to be settling down a little bit. I will put him on a spontaneous breathing trial and if he meets criteria, extubation will be considered. Because his oxygenation is marginal, I would not doubt him requiring a little extra oxygen assistance in the way of high-flow nasal cannula, though his strength is absolutely fantastic. If he wakes up appropriately from a mentation standpoint on a CPAP trial, extubation will strongly be considered. CRITICAL CARE TIME: 30 minutes. Job ID: [id number]
--- NOTE | 2019-04-11 13:50 | PDOC.HOSPP ---
- Subjective Encounter Date: 04/11/19 Encounter Time: 09:40 Subjective: Pt seen for followup re: acute respiratory failure. Extubated today AM, still groggy, could not complete ROS. - Objective Vital Signs & Weight: Vital Signs (12 hours) Temp Pulse Resp Pulse Ox 04/11/19 13:02 83 21 H 99 04/11/19 11:19 96 04/11/19 07:35 85 14 100 04/11/19 07:08 15 100 04/11/19 07:00 99 F 04/11/19 06:00 14 04/11/19 04:00 99.4 F 16 04/11/19 02:28 88 16 100 04/11/19 02:00 16 Weight Admit Weight 253 lb Weight 253 lb 8.505 oz Most Recent Monitor Data Heart Rate from ECG 80 NIBP 140/95 NIBP BP-Mean 110 Respiration from ECG 21 SpO2 98 I&O: 04/10/19 04/11/19 04/12/19 06:59 06:59 06:59 Intake Total 2075 4598.9 0 Output Total 1211 2782 1380 Balance 864 1816.9 -1380 Result Diagrams: 04/11/19 03:40 04/10/19 04:58 Additional Labs: labs and MARs reviewed by me Hospitalist ROS - Review of Systems ROS unobtainable: due to mental status - Medication Medications: Active Medications Generic Name Dose Route Start Last Admin Trade Name Freq PRN Reason Stop Dose Admin Albuterol/Ipratropium 3 ml 04/11/19 13:00 04/11/19 13:02 Duoneb NEB Not Given [id number] [facility] Enoxaparin Sodium 30 mg 04/10/19 09:00 04/11/19 07:27 Lovenox SC 30 mg 0900 NOAH Administration Piperacillin Sod/Tazobactam 100 mls @ 200 mls/hr 04/10/19 02:00 04/11/19 07: 31 Sod 3.375 gm/ Sodium Chloride IVPB 100 mls 0200,0900,1400,2000 [facility] Administration - Exam General - other findings: Obese Eye: anicteric sclera ENT: moist mucosa Neck: supple Heart: RRR, no rubs Respiratory: CTAB Gastrointestinal: soft, non-tender Skin: no rashes Musculoskeletal: no muscle wasting Psychiatric: lethargic Hosp A/P - Plan - Problem (1) Acute Respiratory failure ACUTE RESPIRATORY FAILURE,W HYPOXIA AND HYPERCAPNIA Status: Acute (2) Aspiration pneumonia Code(s): J69.0 - PNEUMONITIS DUE TO INHALATION OF FOOD AND VOMIT Status: Acute (3) Overdose Code(s): T50.901A - POISONING BY UNSP DRUG/MEDS/BIOL SUBST, ACCIDENTAL, INIT Status: Acute (4) Polysubstance abuse Code(s): F19.10 - OTHER PSYCHOACTIVE SUBSTANCE ABUSE, UNCOMPLICATED Status: Chronic (5) PER (acute kidney injury) Code(s): N17.9 - ACUTE KIDNEY FAILURE, UNSPECIFIED Status: Resolved - Plan Plan: - s/p extgubation - On zosyn / vanc for aspiration pneumonia - Pt to be counseled re; drug abuse when more alert.
[2019-04-11] MEDS ORDERED: Sterile Water 10 ML VIAL FS PRN (18:52)
[2019-04-11] MEDS: hydrALAZINE 20 MG/ML VIAL SLOW IVP PRN (21:38)
[2019-04-11] MEDS ORDERED: Furosemide 20 MG/2 ML VIAL SLOW IVP SCH (22:45)
--- NOTE | 2019-04-11 23:04 | RAD ---
EXAM: XR Chest 1 View Portable PROVIDED CLINICAL HISTORY: Shortness of breath COMPARISON: 04/02/20182019 4:15 AM FINDINGS: Interval removal of endotracheal tube and enteric catheter. Prominence of the pulmonary vasculature a nd pulmonary interstitium. Persistent but less conspicuous right lower lung zone and left midlung zone airspace disease. Right subclavian line is again seen in similar position. No evidence for pneum othorax. No evidence for large effusion. IMPRESSION: Improvement but persistent bilateral airspace disease.
[2019-04-12] MEDS: Piperacillin/Tazobactam 3.375 GM in Sodium Chloride 0.9% 100 ML IVPB SCH ×4 (01:36→20:01)
[2019-04-12] MEDS: Ziprasidone 20 MG VIAL IM PRN ×3 (02:47→15:49)
[2019-04-12 05:00] LABS: Anion Gap 12 mmol/L (10-20); BUN (Urea Nitrogen) 5 mg/dL (8.9-20.6); Calc. Creatinine Clearance 229 mL/min (70-130); Calcium 8.6 mg/dL (7.8-10.44); Carbon Dioxide 27 mmol/L (22-29); Chloride 106 mmol/L (98-107); Estimated GFR-MDRD Greater than 90; Glucose 97 mg/dL (70-105); Magnesium 1.7 mg/dL (1.6-2.6); Potassium 3.3 mmol/L (3.5-5.1); Sodium 142 mmol/L (136-145)
[2019-04-12 05:13] LABS: Band 11 % (5-11); Eosinophils 1 % (0-10); Hemoglobin 12.4 g/dL (14.0-18.0); Lymphocytes 6 % (21-51); MDiff Complete? YES; Mean Corpuscular HGB CONC 34.6 g/dL (32.0-36.0); Mean Corpuscular Hemoglobin 30.6 pg (27.0-31.0); Mean Corpuscular Volume 88.3 fL (78.0-98.0); Mean Platelet Volume 8.1 fL (7.4-10.4); Monocytes 5 % (0-10); Neutrophil 76 % (42-75); Platelet Count 157 thou/uL (130-400); Platelet Morphology Comment Appears Adequate; RBC Distribution Width 12.1 % (11.5-14.5); RBC Morphology Normal; Reactive Lymphocytes 1 % (0-10); Red Blood Cell (RBC) Count 4.06 mill/uL (4.70-6.10); White Blood Cell (WBC) Count 9.4 thou/uL (4.8-10.8)
[2019-04-12 05:36] LABS: Phosphorus 2.2 mg/dL (2.3-4.7)
[2019-04-12] MEDS ORDERED: Potassium Chloride 20 MEQ TAB PO PRN (06:46)
[2019-04-12] MEDS ORDERED: Magnesium 2 GM/50 ML 2 GM in Premix Bag 1 BAG IVPB PRN (06:46)
[2019-04-12] MEDS ORDERED: CCU ELECTROLYTE REPLACEMENT PROTOCOL FS PRN (06:46)
[2019-04-12] MEDS ORDERED: Potassium Chloride 40 MEQ in Premix Bag 1 BAG IVPB PRN (06:46)
[2019-04-12] MEDS ORDERED: PHOS-NAK 1 PKT PACK PO PRN ×2 (06:46)
[2019-04-12] MEDS ORDERED: Potassium Phosphate 12 MMOL in Sodium Chloride 0.9% 250 ML 250 ML IV PRN (06:46)
[2019-04-12] MEDS ORDERED: Magnesium Oxide 400 MG TAB PO PRN ×2 (06:46)
[2019-04-12] MEDS ORDERED: Potassium Chloride 40 MEQ in Sodium Chloride 0.9% 250 ML 250 ML IVPB PRN (06:46)
[2019-04-12] MEDS ORDERED: Potassium Phosphate 9 MMOL in Sodium Chloride 0.9% 100 ML IVPB PRN (06:46)
[2019-04-12] MEDS ORDERED: Potassium Phosphate 15 MMOL in Sodium Chloride 0.9% 250 ML 250 ML IV PRN (06:46)
[2019-04-12] MEDS: Enoxaparin Sodium 30 MG/0.3 ML SYRINGE SC SCH (07:34)
--- NOTE | 2019-04-12 09:57 | PDOC.HOSPP ---
- Subjective Encounter Date: 04/12/19 Encounter Time: 12:50 Subjective: Patient very confused, agitated last night, requiring regular Geodon, now very sleepy. Not following commands. - Objective Vital Signs & Weight: Vital Signs (12 hours) Temp Pulse Resp Pulse Ox 04/12/19 07:12 93 L 04/12/19 07:06 94 L 04/12/19 04:00 98.8 F 04/12/19 00:00 98.6 F 04/11/19 23:14 92 22 H 95 Weight Admit Weight 253 lb Weight 253 lb 8.505 oz Most Recent Monitor Data Heart Rate from ECG 74 NIBP 145/94 NIBP BP-Mean 111 Respiration from ECG 30 SpO2 96 I&O: 04/11/19 04/12/19 04/13/19 06:59 06:59 06:59 Intake Total 4598.9 2907 0 Output Total 2782 5245 380 Balance 1816.9 -2338 -380 Result Diagrams: 04/12/19 03:45 04/12/19 04:00 Hospitalist ROS - Review of Systems ROS unobtainable: due to mental status - Medication Medications: Active Medications Generic Name Dose Route Start Last Admin Trade Name Freq PRN Reason Stop Dose Admin Albuterol/Ipratropium 3 ml 04/11/19 13:00 04/12/19 07:05 Duoneb NEB Not Given [id number] NOAH Albuterol/Ipratropium 3 ml 04/11/19 21:22 04/11/19 21:48 Duoneb NEB 3 ml Q4H PRN Administration SOB &/or Wheezing Enoxaparin Sodium 30 mg 04/10/19 09:00 04/12/19 07:34 Lovenox SC 30 mg 0900 NOAH Administration Hydralazine HCl 10 mg 04/11/19 21:23 04/11/19 21:38 Apresoline SLOW IVP 10 mg Q4H PRN Administration SBP > 180 and HR < 70 Piperacillin Sod/Tazobactam 100 mls @ 200 mls/hr 04/10/19 02:00 04/12/19 07: 34 Sod 3.375 gm/ Sodium Chloride IVPB 100 mls 0200,0900,1400,2000 NOAH Administration Dexmedetomidine HCl 400 mcg/ 100 mls @ 0 mls/hr 04/11/19 14:00 04/12/19 07:33 Sodium Chloride IVPB 100 mls INF NOAH Administration Per Protocol Potassium Chloride 40 meq/ 100 mls @ 50 mls/hr 04/12/19 06:46 04/12/19 07:38 Device IVPB 100 mls ASDIR PRN Administration FOR SERUM K+ 2.5 - 3.5 Sodium Chloride 10 ml 04/11/19 21:00 04/11/19 20:26 Flush - Normal Saline IVF 10 ml Q12HR NOAH Administration Ziprasidone 20 mg 04/11/19 18:52 04/12/19 07:08 Geodon IM 20 mg Q6H PRN Administration Agitation - Exam General - other findings: sleepy, somewhat arousable ENT - other findings: on O2 NC Heart: RRR, no murmur, no gallops, no rubs Respiratory: CTAB, no wheezes, no rales, no ronchi Gastrointestinal: soft, non-tender, non-distended, normal bowel sounds Neurological: no focal deficits Psychiatric: not oriented, somnolent Hosp A/P (1) Sepsis Code(s): A41.9 - SEPSIS, UNSPECIFIED ORGANISM Status: Acute (2) Acute respiratory failure with hypoxia Code(s): J96.01 - ACUTE RESPIRATORY FAILURE WITH HYPOXIA Status: Acute (3) Aspiration pneumonia Code(s): J69.0 - PNEUMONITIS DUE TO INHALATION OF FOOD AND VOMIT Status: Acute Qualifiers: Laterality: bilateral Plan: diffuse infiltrates throughout both lungs (4) Overdose Code(s): T50.901A - POISONING BY UNSP DRUG/MEDS/BIOL SUBST, ACCIDENTAL, INIT Status: Acute (5) Polysubstance abuse Code(s): F19.10 - OTHER PSYCHOACTIVE SUBSTANCE ABUSE, UNCOMPLICATED Status: Chronic - Plan Extubated, sating well on 4L NC On Zosyn since 04/10/2019 Requiring Geodon, wean as able Needs [facility] eval once medically stable DVT Proph: Lovenox
[2019-04-12] MEDS ORDERED: Potassium Phosphate 30 MMOL in Sodium Chloride 0.9% 500 ML IVPB SCH (12:30)
[2019-04-12] MEDS ORDERED: Magnesium Sulfate 2 GM in Sodium Chloride 0.9% 100 ML IVPB SCH (12:30)
--- NOTE | 2019-04-12 12:41 | PRG ---
DATE OF SERVICE: 04/12/2019 SERVICE: Pulmonary Medicine. INTERVAL HISTORY: The patient is doing okay from respiratory standpoint. Last night, he got a little bit tachypneic and agitated. His sats were falling off at touch. He got a dose of Lasix and this morning, he is breathing much more comfortably. He is awake, but somnolent. He is still requiring intermittent doses of Geodon. It makes him fairly somnolent. As such, we will be backing off on interval. He still maxed out on the Precedex. As such, he will need to remain in the ICU for an additional 24 hours. PHYSICAL EXAMINATION: VITAL SIGNS: Afebrile, pulse 64, blood pressure 155/108, respirations 30, saturation 94%, currently on 3 L nasal cannula. GENERAL: The patient is awake and alert, in no apparent distress. LUNGS: Good air entry bilaterally. There is minimal dependent crackles present today. Rhonchi have significantly improved. HEART: Normal rate, regular. ABDOMEN: Soft, nontender, and nondistended. Bowel sounds are positive. MUSCULOSKELETAL: No cyanosis or clubbing. There is no pitting in the bilateral lower extremities. NEUROLOGIC: Grossly nonfocal. LABORATORY DATA: WBC 9.4, hemoglobin 12.4, and platelets 157,000. Band counts are settling down, the neutrophil count is up trending. Potassium 3.3. Basic metabolic profile is otherwise unremarkable. Magnesium is 1.7. Phosphorus 2.2. Urinalysis is unremarkable. Blood cultures x2 are negative. IMAGING: Chest x-ray demonstrates bilateral airspace disease, though it is significantly improved compared to prior. Right subclavian catheter is in good position. Cephalization has improved slightly. ASSESSMENT: 1. Acute hypoxic respiratory failure, improving. 2. Polysubstance drug overdose. 3. Community-acquired pneumonia secondary to overt aspiration. 4. Metabolic encephalopathy, resolving. 5. Severe sepsis. DISCUSSION AND PLAN: I will give him an additional dose of diuretic today. Phosphorus, potassium, and magnesium will be replaced. He will need to remain in the ICU for the time being. I will drop his dose of Geodon to 10 mg and we will continue to wean Precedex away as tolerated. Later today if he is calm and collected, he could be considered for getting out of bed and into a chair. Job ID: [id number]
[2019-04-12] MEDS ORDERED: Magnesium 2 GM/50 ML 2 GM in Premix Bag 1 BAG IVPB SCH (12:45)
[2019-04-12] MEDS ORDERED: Ziprasidone 20 MG VIAL IM PRN (16:15)
[2019-04-12] MEDS: hydrALAZINE 20 MG/ML VIAL SLOW IVP PRN (17:50)
[2019-04-13] MEDS: Piperacillin/Tazobactam 3.375 GM in Sodium Chloride 0.9% 100 ML IVPB SCH (01:59)
[2019-04-13 04:13] LABS: #Eosinphils 0.1 thou/uL (0.0-0.7); #Lymphocytes 1.1 thou/uL (1.20-3.40); #Monocytes 0.5 thou/uL (0.11-0.59); #Neutrophils 5.9 thou/uL (1.40-6.50); %Basophils 0.3 % (0.0-1.0); %Eosinophils 0.8 % (0.0-10.0); %Lymphocytes 14.9 % (21.0-51.0); %Monocytes 7.1 % (0.0-10.0); %Neutrophils 76.9 % (42.0-75.0); Hemoglobin 12.7 g/dL (14.0-18.0); Mean Corpuscular Hemoglobin 30.6 pg (27.0-31.0); Mean Corpuscular Volume 87.4 fL (78.0-98.0); Mean Platelet Volume 7.8 fL (7.4-10.4); Platelet Count 190 thou/uL (130-400); RBC Distribution Width 12.1 % (11.5-14.5); Red Blood Cell (RBC) Count 4.14 mill/uL (4.70-6.10); White Blood Cell (WBC) Count 7.6 thou/uL (4.8-10.8)
[2019-04-13 04:43] LABS: Anion Gap 14 mmol/L (10-20); BUN (Urea Nitrogen) 5 mg/dL (8.9-20.6); Calc. Creatinine Clearance 229 mL/min (70-130); Calcium 8.4 mg/dL (7.8-10.44); Carbon Dioxide 25 mmol/L (22-29); Chloride 107 mmol/L (98-107); Estimated GFR-MDRD Greater than 90; Glucose 108 mg/dL (70-105); Phosphorus 3.5 mg/dL (2.3-4.7); Potassium 3.5 mmol/L (3.5-5.1); Sodium 142 mmol/L (136-145)
--- NOTE | 2019-04-13 08:31 | PRG ---
DATE OF SERVICE: 04/13/2019 SUBJECTIVE: Mr. Vasquez is doing well. Has no acute complaints other than withdrawal symptoms. OBJECTIVE: VITAL SIGNS: His temperature is 98.7, pulse 76, blood pressure 153/73, O2 saturation 98%. GENERAL: He is pleasant, in no acute distress. HEENT: Unremarkable. NECK: No adenopathy or JVD. CHEST: Clear. CARDIAC: S1 and S2. Regular. ABDOMEN: Soft. EXTREMITIES: No edema. LABORATORY DATA: Sodium 142, potassium 3.5, BUN 5, creatinine 0.7, glucose 103. White count 7.6, hematocrit 36.1, and platelet count 190. ASSESSMENT: 1. Aspiration pneumonitis. 2. Status post heroin overdose. 3. Status post respiratory failure requiring mechanical ventilation. PLAN: He can be transferred to the floor. My thought is that he will likely be able to go home in a day or two. I will go ahead and switch him over to oral antibiotics. Dr. Fransico Montgomery has been his doctor as an outpatient for substance abuse treatment. I would suggest calling him. Job ID: [id number]
[2019-04-13] MEDS: Amoxicillin/Potassium Clav 875 MG TAB PO SCH ×2 (08:53→20:09)
[2019-04-13] MEDS: Enoxaparin Sodium 40 MG/0.4 ML SYRINGE SC SCH (08:53)
[2019-04-13] MEDS ORDERED: Buprenorphine 8mg/Naloxone 2mg per 1 FILM SL SCH (13:15)
--- NOTE | 2019-04-13 15:17 | RAD ---
2 view chest: [04/13/2019] Comparison:04/11/2019 HISTORY: Pneumonia FINDINGS: Stable midline sternotomy wires. Heart and mediastinal contours appear grossly unremarkable . No pneumothorax is noted. No lobar consolidation. Probable small bilateral pleural effusions. Small hiatal hernia suspected. Pu lmonary vessel congestion with mild perihilar and bibasilar interstitial prominence, which may signify mild degree of interstitial edema. Aeration has improved when compared to the prior examinati on in the perihilar regions and both lung bases. IMPRESSION: Question mild interstitial edema, improved since prior imaging. Recommend short-term foll ow-up imaging of the chest to document resolution.
[2019-04-13] MEDS: Ibuprofen 200 MG TAB PO PRN (17:44)
[2019-04-14] MEDS: Ibuprofen 200 MG TAB PO PRN (00:42)
[2019-04-14 06:00] LABS: Hemoglobin 12.9 g/dL (14.0-18.0); Mean Corpuscular HGB CONC 34.5 g/dL (32.0-36.0); Mean Corpuscular Hemoglobin 30.3 pg (27.0-31.0); Mean Corpuscular Volume 87.8 fL (78.0-98.0); Platelet Count 198 thou/uL (130-400); RBC Distribution Width 12.2 % (11.5-14.5); Red Blood Cell (RBC) Count 4.27 mill/uL (4.70-6.10); White Blood Cell (WBC) Count 4.9 thou/uL (4.8-10.8)
[2019-04-14 06:15] LABS: Anion Gap 12 mmol/L (10-20); BUN (Urea Nitrogen) 5 mg/dL (8.9-20.6); Calc. Creatinine Clearance 235 mL/min (70-130); Calcium 8.7 mg/dL (7.8-10.44); Carbon Dioxide 25 mmol/L (22-29); Chloride 107 mmol/L (98-107); Estimated GFR-MDRD Greater than 90; Glucose 100 mg/dL (70-105); Phosphorus 5.6 mg/dL (2.3-4.7); Sodium 140 mmol/L (136-145)
[2019-04-14 06:41] LABS: Band 3 % (5-11); Eosinophils 6 % (0-10); Lymphocytes 33 % (21-51); MDiff Complete? YES; Monocytes 10 % (0-10); Myelocyte 2 % (0-0); Neutrophil 46 % (42-75)
[2019-04-14 07:41] VITALS: BP 140/88; TEMP 97.8
[2019-04-14] MEDS ORDERED: Buprenorphine 8mg/Naloxone 2mg per 1 FILM SL SCH (09:00)
[2019-04-14] MEDS: Amoxicillin/Potassium Clav 875 MG TAB PO SCH (09:37)
[2019-04-14] MEDS: Enoxaparin Sodium 40 MG/0.4 ML SYRINGE SC SCH (09:39)
== END 2019-04-14 11:19 | disposition home or self-care (01) | DRG 871 ==
LOC: ERS 16:03 → CCU 16:11 → T4-A 04-13 10:04
PROVIDERS: ADMIT Internal Medicine; ATTEND Internal Medicine
PROC: 5A1945Z Respiratory Ventilation, 24-96 Consecutive Hours (ICD-10-PCS; principal; 2019-04-09)
DX: A41.9 Sepsis, unspecified organism (principal); R40.2312 Coma scale, best motor response, none, at arrival to emergency department; R40.2112 Coma scale, eyes open, never, at arrival to emergency department; J69.0 Pneumonitis due to inhalation of food and vomit; R65.21 Severe sepsis with septic shock; J96.01 Acute respiratory failure with hypoxia; G92 Toxic encephalopathy; N17.9 Acute kidney failure, unspecified; F10.20 Alcohol dependence, uncomplicated; F41.9 Anxiety disorder, unspecified; F32.9 Major depressive disorder, single episode, unspecified; F14.10 Cocaine abuse, uncomplicated; F13.10 Sedative, hypnotic or anxiolytic abuse, uncomplicated; F15.10 Other stimulant abuse, uncomplicated; F11.10 Opioid abuse, uncomplicated; T50.912A Poisoning by multiple unspecified drugs, medicaments and biological substances, intentional self-harm, initial encounter; T40.1X2A Poisoning by heroin, intentional self-harm, initial encounter
CPT/HCPCS: 36415; 36556; 51702; 71045; 71046; 71275; 80048; 80053; 80306; 80307; 81003; 81015; 82550; 82553; 82805; 83605; 83735; 84100; 84443; 84484; 85025; 87040; 93005; 94003; 94640; 94644; 94760; 96374; 96375; C9113; J0360; J0456; J0692; J0696; J1650; J1940; J2060; J2250; J2543; J2704; J3010; J3370; J3475; J3480; J3486; J3490; J7050; J7611; J7620; Q9967